=== PATIENT | female | born 1935 | race Caucasian/White ===

== ENCOUNTER 2018-05-05 23:25 | Inpatient (IN) | payer OTHER, MEDICARE ==
[~2018-05-05] VITALS: Ht 157.5 cm; Wt 55.8 kg
[2018-05-06] VITALS (7 sets, daily range): BP systolic 118–151; BP diastolic 58–80
--- NOTE | 2018-05-06 03:15 | NUR ---
STAIN WIPER ADMISSION NOTED RECEIVED PATIENT A DIRECT ADMIT FROM [facility]. DX. CHEST PAIN. PATIENT IS ALERT AND ORIENTED X3, VERBALLY RESPONSIVE, ABLE TO MAKE NEEDS KNOWN. FAMILY AT BEDSIDE. BREATHING EVEN AND UNLABORED. NO SOB NOTED. TOLERATING ROOM AIR. WITH COMPLAINTS OF PAIN ON LEFT CHEST AND BACK 09/12. WILL GIVE PRN PAIN MEDICATION WHEN AVAILABLE. IV ON LEFT AC G#20 INTACT AND PATENT. SKIN DRY AND WARM TO TOUCH. AFEBRILE. SKIN ASSESSMENT RENDERED WITH PICTURES TAKEN AND PLACED IN CHART. BELONGINGS ACCOUNTED FOR. FAMILY WITH TAKE HOME MEDICATIONS. ALL OTHER NEEDS ATTENDED TO. SAFETY MEASURES IN PLACE. CALL LIGHT WITHIN REACH. WILL CONTINUE TO MONITOR.
[2018-05-06] MEDS ORDERED: SIMV20TA6 PO (03:50)
[2018-05-06] MEDS ORDERED: NAPR-1009 PO (03:50)
[2018-05-06] MEDS ORDERED: ISOS10TA2 PO (03:50)
[2018-05-06] MEDS ORDERED: LOSA50TA39 PO (03:50)
[2018-05-06] MEDS ORDERED: METF-440 PO (03:50)
[2018-05-06] MEDS ORDERED: ASPI-1169 PO (03:50)
[2018-05-06] MEDS ORDERED: CLOP75TA15 PO (03:50)
[2018-05-06] MEDS ORDERED: Z GUARD REMEDY 2 OZ OINT TP PRN (04:30)
[2018-05-06] MEDS ORDERED: ZOLPIDEM TARTRATE 5 MG TABLET PO PRN (04:30)
[2018-05-06] MEDS ORDERED: HYDROCODONE/APAP 5/325MG 1 EACH TABLET PO PRN (04:30)
[2018-05-06] MEDS ORDERED: MAGNESIUM HYDROXIDE 30 ML UDC PO PRN (04:30)
[2018-05-06] MEDS ORDERED: ONDANSETRON HCL/PF 4 MG/2 ML VIAL IVP PRN (04:30)
[2018-05-06] MEDS ORDERED: MAG HYDROX/AL HYDROX/SIMETH 30 ML UDC PO PRN (04:30)
--- NOTE | 2018-05-06 06:13 | NUR ---
MAT MACHINE OPERATOR NOTES PER CARIE WILLSON TO CHANGE ASPIRIN 100MG TO ASPIRIN 81MG PO QD. ORDER NOTED AND CARRIED OUT.
--- NOTE | 2018-05-06 06:41 | NUR ---
BATCH FREEZER OPERATOR CLOSING NOTES PATIENT RESTING IN BED. FAMILY AT BEDSIDE. NO ACUTE CHANGES THROUGHOUT SHIFT. BREATHING EVEN AND UNLABORED. NO SOB NOTED. TOLERATING ROOM AIR. NO COMPLAINTS OF PAIN OR DISCOMFORT. NO FACIAL GRIMACING. IV ON LEFT AC INTACT AND PATENT. SKIN DRY AND WARM TO TOUCH. AFEBRILE. ALL OTHER NEEDS ATTENDED TO. SAFETY MEASURES IN PLACE. CALL LIGHT WITHIN REACH. WILL ENDORSE TO ONCOMING NURSE FOR TREVOR.
--- NOTE | 2018-05-06 07:30 | NUR ---
retail associate Opening Notes Patient asleep, resting in bed. Alert and oriented x4, able to verbalize needs, Primaril Yoruba speaking. No complaints of chest pain at this time. Respirations even and unlabored on room air, no acute distress noted. External side laster staple in place, current rhythm normal sinus at 65 bpm. Peripheral IV to the left AC 20 gauge, intact, patent and saline locked. Updated patient on current plan of care and safety measures. Patient verbalized understanding. Safety and fall precautions in place: bed in lowest and locked position, side rails up x2, bed alarm on, call light and personal possessions within reach. Patient verbalized understanding. Family present at bedside. Will continue to monitor and intervene as needed.
[2018-05-06 07:56] LABS: CALCIUM, SERUM 8.9 mg/dL (8.5-10.1); CARBON DIOXIDE 20 mmol/L (21-32); CHLORIDE 102 mmol/L (98-107); CREATININE 0.7 mg/dL (0.6-1.3); GLUCOSE 112 mg/dL (74-106); POTASSIUM 4.1 mmol/L (3.5-5.1); SODIUM SERUM 135 mmol/L (136-145); UREA NITROGEN, BLOOD 15 mg/dL (7-18)
[2018-05-06] MEDS ORDERED: NAPROXEN 250 MG TABLET PO PRN (08:30)
[2018-05-06] MEDS ORDERED: ASPIRIN 81 MG TAB.CHEW PO SCH (09:00)
[2018-05-06] MEDS: METFORMIN 500 MG TABLET PO SCH (09:29)
[2018-05-06] MEDS: LOSARTAN POTASSIUM 50 MG TABLET PO SCH ×2 (09:30→18:00)
[2018-05-06] MEDS: CLOPIDOGREL BISULFATE 75 MG TABLET PO SCH (09:31)
[2018-05-06] MEDS: ISOSORBIDE DINITRATE (10MG) 10 MG TABLET PO SCH (09:31)
[2018-05-06] MEDS: ASPIRIN 81 MG TAB.CHEW PO SCH (09:31)
[2018-05-06] MEDS: ACETAMINOPHEN 325 MG TABLET PO PRN ×2 (11:11→20:16)
[2018-05-06] MEDS: SIMVASTATIN 20 MG TABLET PO SCH (18:00)
--- NOTE | 2018-05-06 18:32 | NUR ---
digital media representative Closing Notes Patient asleep, resting in bed. Alert and oriented x4, able to verbalize needs, Primarily South African speaking. No complaints of chest pain at this time. Respirations even and unlabored on room air, no acute distress noted. Peripheral IV to the left AC 20 gauge, intact, patent and saline locked. Updated patient on current plan of care and safety measures. Patient verbalized understanding. Safety and fall precautions in place: bed in lowest and locked position, side rails up x2, bed alarm on, call light and personal possessions within reach. Patient verbalized understanding. Family present at bedside. All due medications given as ordered. Will endorse to night warehouse selector RN for continuity of care.
--- NOTE | 2018-05-06 19:27 | NUR ---
MS/RN OPENING NOTES RECEIVED PATIENT IN BED, AWAKE, ALERT, BENGALI SPEAKING WITH DAUGHTER AT BED SIDE, SKIN WARM TO TOUCH, RESPIRATIONS EVEN AND UNLABORED. INSTRUCTED TO CALL FOR ASSISTANCE, CALL LIGHTS WITHIN REACH, BED LOCKED, RECEIVED ENDORSEMENT FROM AM RN FOR TREVOR. WILL MONITOR. PAIN REQUESTED FOR LOWER BACK PAIN. WILL MONITOR AND GIVE REQUESTED PAIN MEDICATION, TYLENOL. HOME MEDICATIONS TWILL BE BROUGHT HOME BY DAUGHTER. DISCUSSED PLAN OF CARE.
--- NOTE | 2018-05-06 22:00 | NUR ---
HOME MEDICATIONS WAS NOT BROUGHT BY DAUGHTER, LEFT AT BEDSIDE, TO BE KEPT WITH PHARMACY FOR SAFETY.
[2018-05-07 06:18] LABS: BASOPHILS % (AUTO) 0.8 % (0.0-2.0); EOSINOPHILS % (AUTO) 1.8 % (0.0-6.0); HEMATOCRIT 36 % (33-45); HEMOGLOBIN 12.6 g/dL (11.5-14.8); LYMPHOCYTES # (AUTO) 0.9 /CMM (0.8-4.8); MEAN CORPUSCULAR HGB CONC 35 g/dl (31.0-36.0); MEAN CORPUSCULAR VOLUME 92 fL (82-100); MONOCYTES # (AUTO) 0.5 /CMM (0.1-1.30); NEUTROPHILS # (AUTO) 4.2 /CMM (1.8-8.9); NEUTROPHILS % (AUTO) 73.4 % (43.0-81.0); PLATELET COUNT (AUTO) 184 /CMM (150-450); RED BLOOD CELL COUNT(AUTO) 3.95 MIL/uL (4.0-5.2); WHITE BLOOD COUNT (AUTO) 5.7 K/uL (4.3-11.0)
--- NOTE | 2018-05-07 06:22 | NUR ---
308-1 MS/RN NOTES PATIENT ALERT, ORIENTED. ABLE TO SLEEP DURING THE NIGHT, MONITORED FOR SAFETY, CALL LIGHTS WITHIN REACH, BED LOCKED, PAIN MEDICATION MONITORED FOR RELIEF WILL ENDORSE TO AM RN FOR TREVOR.
--- NOTE | 2018-05-07 06:38 | NUR ---
MS/RN NOTES PATIENT REPORTED PAIN IN CHEST MODERATE. B/P CHECK AT 189/79. LAST PAIN MEDICATION NORCO 5-325 MG PO GIVEN AT 0435. MD GARCÍA MADE AWARE AND ORDERED FOR NEEDED NITROGLYCERIN.
[2018-05-07 06:41] LABS: CARBON DIOXIDE 23 mmol/L (21-32); CHLORIDE 97 mmol/L (98-107); CREATININE 0.8 mg/dL (0.6-1.3); GLUCOSE 106 mg/dL (74-106); PHOSPHORUS 3.8 mg/dL (2.5-4.9); POTASSIUM 4.4 mmol/L (3.5-5.1); SODIUM SERUM 131 mmol/L (136-145); UREA NITROGEN, BLOOD 15 mg/dL (7-18)
[2018-05-07 06:50] LABS: CHOLESTEROL 163 mg/dL (<200); HDL CHOLESTEROL 64 mg/dL (40-60); LDL 83 mg/dL (0-99); TRIGLYCERIDES 120 mg/dL (30-150)
--- NOTE | 2018-05-07 06:51 | NUR ---
relief of chest pain after 1 nitro sublingual given b/p lowered from 172/76 to 160/79. patietn reported no more pain felt in chest.
[2018-05-07] MEDS ORDERED: NITROGLYCERIN 0.4 MG/TAB BOTTLE SL PRN (07:00)
--- NOTE | 2018-05-07 07:12 | NUR ---
MS RN OPENING NOTE RECEIVED PATIENT IN BED. ALERT ORIENTED X3, INDONESIAN SPEAKING ONLY, ABLE TO COMMUNICATE NEEDS IN INDONESIAN. ON ROOM AIR, TOLERATING WELL. IN NO APPARENT DISTRESS OR DISCOMFORT AT THIS TIME. RESPIRATIONS EVEN AND UNLABORED. DENIES PAIN AND SOB. PATIENT WITH LEFT AC 30G IVC SL, PATENT AND INTACT. KEPT CLEAN AND COMFORTABLE, ABLE TO AMBULATE WITH STAND BY ASSIST SAFETY MEASURES IN PLACE, BED IN LOW LOCKED POSITION SIDE RAILS UP X2, CALL LIGHT WITHIN EASY REACH. WILL CONTINUE TO MONITOR.
[2018-05-07 08:00] VITALS: BP 156/73
[2018-05-07] MEDS: LOSARTAN POTASSIUM 50 MG TABLET PO SCH ×2 (08:41→17:06)
[2018-05-07] MEDS: CLOPIDOGREL BISULFATE 75 MG TABLET PO SCH (08:41)
[2018-05-07] MEDS: METFORMIN 500 MG TABLET PO SCH (08:41)
[2018-05-07] MEDS: ISOSORBIDE DINITRATE (10MG) 10 MG TABLET PO SCH (08:42)
[2018-05-07] MEDS: ASPIRIN 81 MG TAB.CHEW PO SCH (08:42)
[2018-05-07 16:00] VITALS: BP 147/65
[2018-05-07] MEDS: SIMVASTATIN 20 MG TABLET PO SCH (17:06)
--- NOTE | 2018-05-07 18:16 | NUR ---
PER DR. NG PUT PATIENT BACK IN TELE MONITOR FOR OVERNIGHT OBSERVATION. NOTED AND CARRIED OUT.
--- NOTE | 2018-05-07 18:20 | NUR ---
MS RN CLOSING NOTE PATIENT IN BED. ALERT ORIENTED X3, GERMAN SPEAKING ONLY, ABLE TO COMMUNICATE NEEDS IN GERMAN. ON ROOM AIR, TOLERATING WELL. IN NO APPARENT DISTRESS OR DISCOMFORT AT THIS TIME. RESPIRATIONS EVEN AND UNLABORED. DENIES PAIN AND SOB. PATIENT ON TELE MONITORING FOR OBSERVATION, PATIENT WITH LEFT AC 20G IVC SL, PATENT AND INTACT. KEPT CLEAN AND COMFORTABLE, ALL NEEDS ATTENDED, ORDERS RENDERED, ABLE TO AMBULATE WITH STAND BY ASSIST, DAUGHTER AT BEDSIDE. SAFETY MEASURES IN PLACE, BED IN LOW LOCKED POSITION SIDE RAILS UP X2, CALL LIGHT WITHIN EASY REACH. WILL ENDORSE TO PM NURSE FOR TREVOR.
[2018-05-07] MEDS ORDERED: REGADENOSON 0.4 MG/5 ML DISP.SYRIN IVP ONE (18:30)
--- NOTE | 2018-05-07 20:00 | NUR ---
ms/rn opening notes RECEIVED PATIENT IN BED, ALERT, ORIENTED X3, CROATIAN SPEAKING WITH DAUGHTER AT BEDSIDE, BLOOD PRESSURE CHECK 122/66, PULSE 67, DISCUSSED PROCEDURE FOR CASEY AM FOR STRESS TEST, SIGNED CONSENT, NO PAIN REPORTED, ABLE TO AMBULATE WITH SUPERVISION, INSTRUCT TO CALL AND NPO EXCEPT MED AT MD, NO COFFEE, NO TEA AND NO CHOCOLATES PATIENT VERBALIZED UNDERSTANDING, RESPIRATIONS EVEN AND UNLABORED. WILL MONITOR.
[2018-05-07] MEDS: METOPROLOL TARTRATE 25 MG TABLET PO SCH (20:29)
[2018-05-07 20:46] VITALS: BP 122/66
--- NOTE | 2018-05-08 06:51 | NUR ---
308-1 MS/RN NOTES PATIENT ABLE TO SLEEP WELL DURING THE NIGHT, MONITORED FOR SAFETY, ALERT, ORIENTED WITH SELF CARE. RESPIRAIONS EVEN AND UNLABORED ON ROOM AIR. NPO STATUS , WITH STRESS TEST IN AM. BED LOCLED. WILL ENDORSE TO AM RN FOR TREVOR.
--- NOTE | 2018-05-08 07:30 | NUR ---
MS RN OPENING NOTE RECEIVED PT IN BED, AWAKE AND ALERT. PT IS PRIMARILY YI SPEAKING. NO ACUTE DISTRESS NOTED AT THIS TIME. BREATHING IS EVEN AND UNLABORED ON ROOM AIR. LEFT AC #20G IV IS SALINE LOCKED WITHOUT REDNESS OR SWELLING. PT IS SCHEDULED FOR STRESS TEST THIS AM. NPO STATUS MAINTAINED. CONSENTS SIGNED AND PLACED IN CHART. BED IS LOCKED AND IN LOWEST POSITION, SIDE RAILS UP X2, BED ALARM ON, CALL LIGHT AND POSSESSIONS WITHIN REACH,
[2018-05-08 08:00] VITALS: BP 156/80
--- NOTE | 2018-05-08 08:45 | NUR ---
MS PEREZ PT OFF UNIT PT OFF UNIT FOR STRESS TEST. CONSENTS SIGNED AND PLACED IN CHART.
[2018-05-08 09:00] VITALS: BP 156/80
[2018-05-08] MEDS: METFORMIN 500 MG TABLET PO SCH (09:00)
[2018-05-08] MEDS: ASPIRIN 81 MG TAB.CHEW PO SCH (09:00)
[2018-05-08] MEDS: LOSARTAN POTASSIUM 50 MG TABLET PO SCH (09:00)
[2018-05-08] MEDS ORDERED: ISOSORBIDE MONONITRATE (30MG) 30 MG TAB.SR.24H PO SCH (09:00)
[2018-05-08] MEDS: METOPROLOL TARTRATE 25 MG TABLET PO SCH (09:00)
--- NOTE | 2018-05-08 10:00 | NUR ---
MS RN NOTE PT BACK FROM STRESS TEST AND SITTING IN CHAIR WITH FAMILY AT THE BEDSIDE.
[2018-05-08] MEDS ORDERED: METO25TA20 PO (13:45)
[2018-05-08] MEDS ORDERED: Isosorbide Mononitrate (30MG) PO (13:45)
--- NOTE | 2018-05-08 15:59 | NUR ---
MS RN PT DISCHARGED PT DISCHARGED HOME VIA PRIVATE CAR IN MEDICALLY STABLE CONDITION, ACCOMPANIED BY DAUGHTER YOCASTA. PT IS A/OX4, PRIMARILY GREENLANDIC SPEAKING. DENIES CHEST PAIN, SOB, N/V. BREATHING IS EVEN AND UNLABORED ON ROOM AIR. LEFT AC PERIPHERAL IV REMOVED WITH CATHETER TIP INTACT AND MINIMAL BLEEDING. WOUND DOCUMENTATION COMPLETED PER PROTOCOL. DISCHARGE PAPERWORK AND EDUCATION PROVIDED PER PROTOCOL. INCLUDED PRESCRIPTIONS FOR ISOSORBIDE 30MG AND METOPROLOL 25MG AND DISCUSSED DR RECOMMENDATION TO STOP TAKING PLAVIX AND TO STOP TAKING ISOSORBIDE 10MG. PROVIDED READING AND REFERENCE MATERIAL FOR ALL MEDICATIONS. INFORMED PT AND DAUGHTER TO CALL 911 OR RETURN TO THE NEAREST ER FOR CHEST PAIN, SOB, TEMPERATURE THAT DOES NOT GO DOWN WITH TYLENOL ADMINISTRATION, UNILATERAL CALF SWELLING OR REOCCURRENCE OF CHIEF COMPLAINT. INFORMED PT AND DAUGHTER OF DR RECOMMENDATIONS TO FOLLOW UP WITH PRIMARY CARE PROVIDER AND EAP SPECIALIST WITHIN ONE WEEK, PROVIDED CARD WITH CONTACT INFORMATION FOR DR. BARNHART OFFICE PER PT REQUEST. DAUGHTER AND PT VERBALIZED UNDERSTANDING OF EDUCATION PROVIDED AND UNDERSTANDING OF MEDICATIONS AND DOCTORS RECOMMENDATIONS UPON DISCHARGE. ALL BELONGINGS ACCOUNTED FOR AND PROVIDED PT HOME MEDICATION FROM PHARMACY. THE NURSE ACCOMPANIED THE PT AND DAUGHTER TO THE MAIN LOBBY AND ASSISTED INTO CAR WITHOUT INCIDENT.
== END 2018-05-08 15:50 | disposition home or self-care (01) | DRG 198 ==
LOC: TELE 05-06 03:00 → MED 05-06 18:35
PROVIDERS: ADMIT Internal Medicine; ATTEND Nurse Practitioner Acute Care
DX: R07.89 Other chest pain (principal); I25.10 Atherosclerotic heart disease of native coronary artery without angina pectoris; E11.9 Type 2 diabetes mellitus without complications; E86.1 Hypovolemia; E87.1 Hypo-osmolality and hyponatremia; E78.5 Hyperlipidemia, unspecified; I10 Essential (primary) hypertension; I25.2 Old myocardial infarction; R91.1 Solitary pulmonary nodule
CPT/HCPCS: 36415; 80048-TC; 80061-TC; 83735-TC; 84100-TC; 84484-TC; 85025-TC; 87081-TC; 93307-TC; A9502; G0378; J2785